=== PATIENT | male | born 1995 | race Two or more races ===

== ENCOUNTER 2023-09-07 15:28 | Emergency (ER) | payer BC ==
[~2023-09-07] VITALS: Ht 167.6 cm; Wt 122.5 kg
[2023-09-07] MEDS ORDERED: cloNIDine HCL 0.2 MG TABLET PO ONE (17:00)
== END 2023-09-07 19:13 | disposition home or self-care (01) ==
LOC: ER 15:28
DX: I10 Essential (primary) hypertension (principal)